=== PATIENT | female | born 1985 | race Caucasian/White ===

== ENCOUNTER 2025-06-13 10:08 | Inpatient (IN) | payer BC ==
[2025-06-10 13:36] LABS: Hematocrit 33.3 % (34.9-44.5); Hemoglobin 10.6 g/dL (12.0-15.5); Platelet Count 292 10x3/uL (150-450)
[2025-06-10 14:13] LABS: Hep B Surf Ag Non-Reactive S/CO (NonReactive); Syphilis Antibody Index 0.09 S/CO (<1.00 Non-Reactive)
[2025-06-10 14:51] LABS: HIV (1/2) Antibody/Antigen Non-Reactive (NonReactive); HIV 1/2 INDEX 0.32 S/CO (<1.00)
[~2025-06-13 10:08] MED LIST: Bicitra 30 ML UDCUP PO PRN; Famotidine/PF 20 mg/2ml Vial SLOW IVP PRN; Ondansetron PF 4 MG/2 ML Vial IVP PRN; Oxytocin 30 units/NS 500 ML 500 ML IV SCH; hydrALAZINE 20 MG/ML VIAL SLOW IVP PRN
[2025-06-13] MEDS ORDERED: Ondansetron PF 4 MG/2 ML Vial IVP PRN ×3 (13:01→16:20)
[2025-06-13] MEDS ORDERED: hydrALAZINE 20 MG/ML VIAL SLOW IVP PRN (13:01)
[2025-06-13] MEDS ORDERED: Simethicone Chewable 80 MG TAB PO PRN (13:01)
[2025-06-13] MEDS ORDERED: Oxytocin 30 units/NS 500 ML 500 ML IV SCH (13:15)
[2025-06-13] MEDS: Oxytocin 10 UNITS/ML VIAL ONE ×2 (15:49→15:50)
[2025-06-13] MEDS: PHENYLEPHRINE-NS 100 MCG/ML 10 ML SYRINGE ONE (15:50)
[2025-06-13] MEDS: Ondansetron PF 4 MG/2 ML Vial ONE (15:50)
[2025-06-13] MEDS: CEFAZOLIN 2 GM VIAL ONE (15:50)
[2025-06-13] MEDS ORDERED: Meperidine HCl/PF 25 MG (1 mL) VIAL SLOW IVP PRN (16:20)
[2025-06-13] MEDS ORDERED: diphenhydrAMINE 50 MG/ML VIAL IVP PRN (16:20)
[2025-06-13 16:23] VITALS: BMI 30.9
[2025-06-13] MEDS ORDERED: Ketorolac Tromethamine 30 MG (1 mL) VIAL IVP SCH (16:30)
[2025-06-13] MEDS ORDERED: Communication Order-Pharmacy FS SCH (16:30)
[2025-06-13] MEDS: Ketorolac Tromethamine 30 MG (1 mL) VIAL IVP PRN (18:10)
[2025-06-14 04:10] LABS: Hematocrit 27.4 % (34.9-44.5); Hemoglobin 8.7 g/dL (12.0-15.5); Mean Corpuscular Hemoglobin 24.5 pg (27.0-33.0); Mean Corpuscular Volume 77.2 fL (81.6-98.3); Platelet Count 272 10x3/uL (150-450); Red Blood Cell (RBC) Count 3.55 10x6/uL (3.90-5.03); White Blood Cell (WBC) Count 9.23 10x3/uL (3.5-10.5)
[2025-06-14] MEDS: HYDROcodone/Acetaminophen 5/325 mg Tablet PO PRN (17:29)
[2025-06-14] MEDS: Ibuprofen 800 MG TAB PO SCH (22:10)
[2025-06-16 08:03] VITALS: BP 118/64; TEMP 98
== END 2025-06-16 11:25 | disposition home or self-care (01) | DRG 788 ==
LOC: CSHLD 10:08 → CSHPP 15:48
PROVIDERS: ADMIT Obstetrics & Gynecology; ATTEND Obstetrics & Gynecology
PROC: 10D00Z1 Extraction of Products of Conception, Low, Open Approach (ICD-10-PCS; principal; 2025-06-13)
DX: O34.211 Maternal care for low transverse scar from previous cesarean delivery (principal); O99.285 Endocrine, nutritional and metabolic diseases complicating the puerperium; E03.9 Hypothyroidism, unspecified; F32.A Depression, unspecified; F41.9 Anxiety disorder, unspecified; Z79.899 Other long term (current) drug therapy; Z79.890 Hormone replacement therapy; Z37.0 Single live birth; Z3A.39 39 weeks gestation of pregnancy
CPT/HCPCS: 36415; 51702; 85027; 86780; 86850; 86900; 86901; 87340; 87389; J1885; J2274; J2405; J2590; J3010